=== PATIENT | female | born 1970 | race Caucasian/White ===

== ENCOUNTER 2020-06-03 22:47 | Emergency (ER) | payer SELFPAY ==
[~2020-06-03] VITALS: Ht 160 cm; Wt 91.4 kg
[2020-06-03 23:00] VITALS: PULSE 79; TEMP 98.2
== END 2020-06-03 23:15 | disposition left against medical advice (07) ==
LOC: COL.ER 22:47
DX: M79.2 Neuralgia and neuritis, unspecified (principal)

== ENCOUNTER 2020-06-03 23:25 | Emergency (ER) | payer SELFPAY | END 2020-06-04 03:15 | disposition left against medical advice (07) | LOC: COL.ER 23:25 | DX: Z72.9 Problem related to lifestyle, unspecified (principal) ==

== ENCOUNTER 2022-02-23 15:12 | Emergency (ER) | payer SELFPAY ==
[~2022-02-23] VITALS: Ht 160 cm; Wt 77.3 kg
[2022-02-23 15:24] VITALS: TEMP 97.4
[2022-02-23 15:53] LABS: COLLECTION METHOD CLEAN CATCH
[2022-02-23 15:58] LABS: BASO % 0.3 % (0.0-2.0); EOS % 0.1 % (0.0-4.0); GRAN # 10.1 K/mm3 (1.4-6.5); GRAN % 87.5 % (42.2-75.2); HEMATOCRIT 39.2 % (37.0-47.0); HEMOGLOBIN 13.2 g/dl (12.5-16.0); MEAN CELL VOLUME 102 fl (80.0-100.0); MEAN CORPUSCULAR HEMOGLOBIN 34 pg (27-31); MEAN CORPUSCULAR HGB CONC 34 g/dl (33.0-37.0); MEAN PLATELET VOLUME 10.7 fl (7.4-10.4); MONO # 0.3 K/mm3 (0.1-0.6); MONO % 2.8 % (1.7-9.3); PLATELET COUNT 182 K/mm3 (130-400); RED BLOOD COUNT 3.86 M/mm3 (4.10-5.30); REDCELL DISTRIBUTION WIDTH-CV 11.5 % (11.5-14.5)
[2022-02-23 16:04] LABS: MUCOUS Present (NOT PRESENT); PH 7 (5-8); SQUAMOUS EPITHELIAL 0-2 /hpf (0-10); URINE APPEARANCE Hazy (CLEAR/HAZY); URINE BACTERIA None Seen /hpf (NONE SEEN); URINE BILIRUBIN Negative (NEGATIVE); URINE BLOOD 1+ (NEGATIVE); URINE COLOR Yellow (YELLOW); URINE GLUCOSE Negative (NEGATIVE); URINE KETONE 1+ (NEGATIVE); URINE LEUKOCYTE ESTERASE Negative (NEGATIVE); URINE NITRATE Negative (NEGATIVE); URINE PROTEIN(semi-quant) Negative (NEGATIVE); URINE UROBILINOGEN Negative (NEGATIVE)
[2022-02-23 16:38] LABS: ALBUMIN 4.3 gm/dL (3.5-5.0); BILIRUBIN,TOTAL 0.5 mg/dL (0.2-1.2); CALCIUM 9.2 mg/dL (8.4-10.2); CREATININE, serum 0.94 mg/dL (0.57-1.11); POTASSIUM 3.5 mmol/L (3.5-4.5); TOTAL PROTEIN 7.3 gm/dL (6.2-8.1)
[2022-02-23] MEDS ORDERED: ZOFRAN ODT4 MG PO (19:49)
[2022-02-23] MEDS ORDERED: NORCO 325 MG-51 TAB PO (19:49)
[2022-02-23 20:08] VITALS: BP 148/71; PULSE 69
== END 2022-02-23 20:11 | disposition home or self-care (01) ==
LOC: COL.ER 15:12
PROVIDERS: Emergency Medicine; Nurse Practitioner
DX: N13.2 Hydronephrosis with renal and ureteral calculous obstruction (principal); F17.210 Nicotine dependence, cigarettes, uncomplicated; Z88.6 Allergy status to analgesic agent
CPT/HCPCS: J2270; J2405; J7030